=== PATIENT | female | born 1965 | race Hispanic/Latino ===

== ENCOUNTER 2019-10-07 15:32 | Outpatient (CLI) | payer BC, SELFPAY ==
--- NOTE | ~2019-10-07 | MM_ITS ---
EXAMINATION: MM screening wander BI w shonna HISTORY: Screening mammogram TECHNIQUE: Craniocaudal and mediolateral oblique 3-D tomosynthesis images were obtained and synthetic 2-D images were generated. CAD analysis was submitted and interpreted. COMPARISON: 09/02/2018, 08/22/2017 and 08/01/2016 bilateral digital screening mammogram examinations BREAST PARENCHYMAL COMPOSITION: There are scattered areas of fibroglandular density. FINDINGS: There is no evidence of suspicious mass, calcification, or architectural distortion to sugg est malignancy in either breast. There has been no suspicious interval change. IMPRESSION: 1. No mammographic evidence of malignancy. 2. Recommend routine screening mammography in one year. BI-RADS Category 1: Negative Reviewed, dictated and finalized at location A. 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
== END 2019-10-07 15:33 | disposition home or self-care (01) ==
LOC: ANHIMG 15:36
PROVIDERS: PCP Family Medicine; Visit Provider Family Medicine
DX: Z12.31 Encounter for screening mammogram for malignant neoplasm of breast (principal)
CPT/HCPCS: 77063; 77067

== ENCOUNTER → 2021-04-24 15:04 | Outpatient (CLI) | payer BC, SELFPAY ==
--- NOTE | ~2021-04-24 | XR_ITS ---
EXAMINATION: XR chest 2V 04/24/2021 15:23 INDICATION: Chest pain PROCEDURE: 2 view chest COMPARISON: 05/04/2014 FINDINGS: The lungs are clear. The cardiomediastinal silhouette is within normal limits. There are no pleural effusions. There is no pneumothorax suspected. IMPRESSION: 1: NO ACUTE CARDIOPULMONARY DISEASE. Reviewed, dictated and finalized at location A.
== END ==
PROVIDERS: PCP Family Medicine; Visit Provider Family Medicine
DX: M85.80 Other specified disorders of bone density and structure, unspecified site (principal); R07.9 Chest pain, unspecified
CPT/HCPCS: 71046

== ENCOUNTER → 2021-06-19 11:49 | Outpatient (CLI) | payer BC, SELFPAY ==
--- NOTE | ~2021-06-19 | DEXA_ITS ---
Bone Density Report Name: Janice Marin Age: 55 Sex: Female Ethnicity: White Date of : 1965 Indication: postmenopausal; screening for osteoporosis; Referring Provider: KB, AUTUMN Hdez Study: Bone densitometry was performed. Exam Date: June 19, 2021 Accession number: [id number] Bone Density: Region BMD T-score Z-score Classification AP Spine (L1-L4) 0.883 -1.5 -0.4 Osteopenia Femoral Neck (Left) 0.849 0.0 1.1 Normal Total Hip (Left) 0.915 -0.2 0.5 Normal Femoral Neck (Right) 0.886 0.3 1.4 Normal Total Hip (Right) 0.935 -0.1 0.6 Normal Total Hip Mean 0.925 -0.2 0.6 Normal World Health Organization criteria for BMD impression classify patients as: Normal (T-score at or above -1.0), Osteopenia (T-score between -1.0 and -2.5), or Osteoporosis (T-score at or below -2.5). 10-year Fracture Risk(1): Major Osteoporotic Fracture 5.3% Hip Fracture 0.1% Reported Risk Factors: [place] (), Neck BMD=0.849, BMI=25.5 (1) FRAX(R) Version 3.08. Fracture probability calculated for an untreated patient. Fracture probability may be lower if the patient has received treatment. Clinical Information Provided by Patient: Has used the following medications: Calcium, MTV Patient maximum height was 64.0 Menopause Age: 49 No regular weight bearing exercise Does not regularly consume dairy products Onset of menses at age 12 Number of children 4 Impression: The patient has low bone mass, based on the Total Spine T-score. The patient has an estimated ten-year risk of hip fracture of 0.1% and an estimated ten-year risk of major fracture of 5.3%, based on the WHO FRAX algorithm. Discussion: BONE DENSITY IS LOW AT ONE OR MORE SKELETAL SITES. This patient's lowest T-score is low at one or more skeletal sites. It meets the World Health Organization's (WHO) criteria for ?low bone mass? (T-score between -1.0 and -2.5). The patient's 10-year risk of fracture as calculated by FRAX is less than the threshold where pharmacological therapy is recommended by the National Osteoporosis Foundation (NOF). However, all treatment decisions require clinical judgment and consideration of individual patient factors, including patient preferences, comorbidities, previous drug use, risk factors not captured in the FRAX model (e.g., frailty, falls, vitamin D deficiency, increased bone turnover, interval significant decline in bone density) and possible under or overestimation of fracture risk by FRAX. The patient should follow a healthful lifestyle (good nutrition with adequate calcium and vitamin D, and appropriate weight-bearing exercise). Follow-Up: Consider repeating this study in 2 to 3 years to reassess this patient's status, or sooner if there is some new clinical indication. Reported by: [facility] on 06/19/2021 12
== END ==
PROVIDERS: PCP Family Medicine; Visit Provider Family Medicine
DX: R07.9 Chest pain, unspecified (principal); M85.88 Other specified disorders of bone density and structure, other site
CPT/HCPCS: 77080

== ENCOUNTER 2023-01-07 15:47 | Outpatient (CLI) | payer BC, SELFPAY ==
--- NOTE | ~2023-01-07 | MM_ITS ---
EXAMINATION: MM screening wander BI w shonna HISTORY: Screening TECHNIQUE: Craniocaudal and mediolateral oblique 3-D tomosynthesis images were obtained and synthetic 2-D images were generated. CAD analysis was submitted and interpreted. COMPARISON: Comparison to multiple prior studies sequentially, with oldest reviewed study dated 07/04. BREAST PARENCHYMAL COMPOSITION: Breast composed of scattered areas of fibroglandular density FINDINGS: There is no evidence of suspicious mass, calcification, or architectural distortion to sugg est malignancy in either breast. There has been no suspicious interval change. IMPRESSION: 1. No mammographic evidence of malignancy. 2. Recommend routine screening mammography in one year. BI-RADS Category 1: Negative Reviewed, dictated and finalized at location A.
== END 2023-01-07 15:48 | disposition home or self-care (01) ==
LOC: ANHIMG 15:50
PROVIDERS: PCP Family Medicine; Visit Provider Family Medicine
DX: Z12.31 Encounter for screening mammogram for malignant neoplasm of breast (principal)
CPT/HCPCS: 77063; 77067

== ENCOUNTER → 2023-09-25 14:10 | Outpatient (CLI) | payer BC, SELFPAY ==
--- NOTE | ~2023-09-25 | DEXA_ITS ---
Bone Density Report Name: JENS LOUIS Age: 57 Sex: Female Ethnicity: White Date of : 1965 Indication: osteopenia; height loss; postmenopausal Referring Provider: KB, AUTUMN Hdez Study: Bone densitometry was performed. Exam Date: September 25, 2023 Accession number: [id number] Bone Density: Region BMD T-score Z-score Classification AP Spine (L1-L4) 0.852 -1.8 -0.5 Osteopenia Femoral Neck (Left) 0.779 -0.6 0.5 Normal Total Hip (Left) 0.874 -0.6 0.3 Normal Femoral Neck (Right) 0.750 -0.9 0.3 Normal Total Hip (Right) 0.850 -0.8 0.1 Normal Total Hip Mean 0.862 -0.7 0.2 Normal World Health Organization criteria for BMD impression classify patients as: Normal (T-score at or above -1.0), Osteopenia (T-score between -1.0 and -2.5), or Osteoporosis (T-score at or below -2.5). 10-year Fracture Risk(1): Major Osteoporotic Fracture 6.5% Hip Fracture 0.3% Reported Risk Factors: [place] (), Neck BMD=0.750, BMI=25.4 (1) FRAX(R) Version 3.08. Fracture probability calculated for an untreated patient. Fracture probability may be lower if the patient has received treatment. Previous Exams: Region Exam Age BMD T-score BMD Change BMD Change Date g/cm2 vs Baseline vs Previous AP Spine(L1-L4) 09/25/2023 57 0.852 -1.8 -0.031* -0.031* 06/19/2021 55 0.883 -1.5 Total Hip(Left) 09/25/2023 57 0.874 -0.6 -0.042* -0.042* 06/19/2021 55 0.915 -0.2 Total Hip(Right) 09/25/2023 57 0.850 -0.8 -0.085* -0.085* 06/19/2021 55 0.935 -0.1 *Denotes significance at 95% confidence level, LSC for AP Spine = 0.022 g/cm2, LSC for Total Hip = 0.027 g/cm2 Clinical Information Provided by Patient: Has used the following medications: Vitamin D, MTV Patient maximum height was 64.0 Menopause Age: 49 No regular weight bearing exercise Does not regularly consume dairy products Drinks caffeinated beverages Onset of menses at age 12 Number of children 4 Impression: The patient has low bone mass, based on the Total Spine T-score. The patient has an estimated ten-year risk of hip fracture of 0.3% and an estimated ten-year risk of major fracture of 6.5%, based on the WHO FRAX algorithm. The BMD for the AP Spine(L1-L4) decreased, changing by -0.031 since the last DXA exam. The BMD for the Total Hip(Left) decreased, changing by -0.042 since the last DXA exam. The BMD for the Total Hip(Right) decreased, guevara
== END ==
PROVIDERS: PCP Family Medicine; Visit Provider Family Medicine
DX: M85.88 Other specified disorders of bone density and structure, other site (principal)
CPT/HCPCS: 77080

== ENCOUNTER 2024-03-07 14:50 | Outpatient (CLI) | payer BC, SELFPAY ==
--- NOTE | ~2024-03-07 | US_ITS ---
EXAMINATION: US thyroid DATE: 03/07/2024 15:05 INDICATION: Nontoxic single thyroid nodule. TECHNIQUE: Multiple ultrasound images of the thyroid were obtained. COMPARISON: CT neck 04/07/2019 FINDINGS: The right thyroid lobe measures 3.4 x 1.2 x 1.3 cm. The left thyroid lobe measures 4.1 x 1.1 x 1.5 c m. In the right thyroid lobe, there is a 6 mm macrocalcification. In the left thyroid lobe, there is a 4 mm macrocalcification. IMPRESSION: 1. Chronic macrocalcifications in the thyroid, likely not clinically significant. No follow-up is nee ded. Reviewed, dictated and finalized at location A. IMPRESSION: 1. Chronic macrocalcifications in the thyroid, likely not clinically significan t. No follow-up is needed.
== END 2024-03-07 14:51 ==
LOC: MICIMG 14:51
PROVIDERS: PCP Nurse Practitioner Family; Visit Provider Nurse Practitioner Family
DX: E04.1 Nontoxic single thyroid nodule (principal)
CPT/HCPCS: 76536

== ENCOUNTER 2024-04-11 18:52 | Emergency (ER) | payer BC, SELFPAY ==
--- NOTE | ~2024-04-11 | XR_ITS ---
EXAMINATION: XR chest 2V Exam Date/Time: 04/11/2024 19:20 CDT HISTORY: chest pain Comparison: None. RESULT: Lines, tubes, and devices: None. Lungs and pleura: Clear. Cardiomediastinal silhouette: Unremarkable. Other: No acute osseous or upper abdominal finding. IMPRESSION: No acute cardiopulmonary process. Reviewed, dictated and finalized at location K.
--- NOTE | 2024-04-11 19:06 | ECG_ITS ---
Test Date: 2024-04-11 19:18:20 Measurements Intervals [place] Rate: 63 P: 55 OK: 135 QRS: 37 QRSD: 85 T: 61 QT: 398 QTc: 410 Interpretive Statements SINUS RHYTHM LEFT ATRIAL ENLARGEMENT EARLY PRECORDIAL R/S TRANSITION LEFT VENTRICULAR HYPERTROPHY MINIMAL Q WAVES- HIGH LATERAL LEADS BORDERLINE ECG No previous ECG available for comparison Electronically Signed On 04-11-2024 20:14:17 CDT by Tobias Aranda D.O.
[2024-04-11 19:11] VITALS: BP 193/76; PULSE 80; RESP 15; TEMP 36.6; O2SAT 100
[2024-04-11 19:31] LABS: Basophils Percent Auto 0.3 % (0.2-1.2); Eosinophils Absolute Auto 0.1 K/mm3 (0-0.3); Hematocrit 43.7 % (37.0-47.0); Hemoglobin 13.9 g/dL (12.0-15.0); Immature Granulocyte Absolute 0.02 K/mm3 (0.00-0.031); Immature Granulocyte Percent A 0.2 % (0-0.5); Lymphocytes Absolute Auto 3.73 K/mm3 (0.9-3.2); Lymphocytes Percent Auto 40.2 % (18.3-44.2); Mean Corpuscular HGB Conc 31.8 g/dl (32-36); Mean Corpuscular Hemoglobin 29.1 pg (26-34); Mean Corpuscular Volume 91.4 fl (80-100); Mean Platelet Volume 11.1 fl (7.4-10.4); Monocytes Absolute Auto 0.7 K/mm3 (0.1-0.6); Monocytes Percent Auto 7.2 % (2.6-8.5); Neutrophils Absolute Auto 4.7 K/mm3 (1.3-6.7); Neutrophils Percent Auto 51.1 % (45.5-73.1); Platelet Count Result 268 k/mm3 (150-375); Red Blood Count 4.78 M/mm3 (4.2-5.4); Red Cell Distribution Width 12.1 % (11.5-14.5); White Blood Count 9.3 K/mm3 (4.5-10.0)
[2024-04-11 19:43] LABS: INR 0.9; Partial Thromboplastin Time 27.5 Seconds (22.3-36.8); Prothrombin Time 12.7 Seconds (11.1-14.7)
[2024-04-11 19:44] LABS: Alanine Aminotransferase 25 U/L (6-35); Albumin Level 4.7 g/dL (3.5-5.1); Alkaline Phosphatase 76 U/L (38-126); Anion Gap 8 mmol/L (4-12); Aspartate Amino Transferase 34 U/L (14-36); Bilirubin,Total 0.3 mg/dL (0.2-1.3); Blood Urea Nitrogen 17 mg/dL (7-17); Calcium 9.4 mg/dL (8.4-10.2); Carbon Dioxide 34 mmol/L (22-30); Chloride 98 mmol/L (98-107); Estimated CRCL calculation 51 ml/min; Estimated Glomerular Filt Rate > 60; Glucose 123 mg/dL (65-110); Lipase 125 U/L (23-300); Potassium 4.1 mmol/L (3.4-5.0); Sodium 140 mmol/L (137-145)
[2024-04-11 19:55] LABS: Troponin I < 0.012 ng/mL (0.000-0.034)
--- NOTE | 2024-04-11 23:39 | ECG_ITS ---
Test Date: 2024-04-11 23:43:20 Measurements Intervals [place] Rate: 62 P: 60 [place]: 144 QRS: 43 QRSD: 81 T: 57 QT: 396 QTc: 403 Interpretive Statements SINUS RHYTHM LEFT ATRIAL ENLARGEMENT LEFT VENTRICULAR HYPERTROPHY MINIMAL Q WAVES- HIGH LATERAL LEADS BASELINE ARTIFACT- I, II, AVR, V1 BORDERLINE ECG Compared to ECG 04/11/2024 19:18:20 NO SIGNIFICANT CHANGE Electronically Signed On 04-12-2024 06:26:00 CDT by Tobias Aranda D.O.
[2024-04-11 23:48] VITALS: PULSE 62
[2024-04-11 23:49] VITALS: BP 109/69; PULSE 62; RESP 16; TEMP 36.4; O2SAT 100
[2024-04-11 23:50] VITALS: O2SAT 100
[2024-04-12 00:21] LABS: Troponin I < 0.012 ng/mL (0.000-0.034)
--- NOTE | 2024-04-12 00:36 | ED.CHESTPAIN ---
HPI - Chest Pain General Chief Complaint: Chest Pain Stated Complaint: chest pain Time Seen by Provider: 04/11/24 23:56 History of Present Illness HPI narrative: 58-year-old female with a past medical history for prediabetes and well-controlled hypertension who presents to the emergency department chief complaint of intermittent chest discomfort. She states for last day or so she has been having vague chest discomfort in the anterior portion of her chest. Not associated with the movement, exertion or rest. She states that is sporadic and lasts for a brief period of time. Has not happened before. States sometimes is worse with a deep inhalation. No pneumonia symptoms such as a productive cough, fevers, difficulty in breathing. No chills, rigors, abdominal pain, back pain. Was previously normal state of health. No recent procedures or long travel. No history of DVT or PE. Related Data Allergies Allergy/AdvReac Type Severity Reaction Status Date / Time No Known Allergies Allergy Verified 04/11/24 18:52 Review of Systems Review of Systems: As reviewed above Exam Narrative: GENERAL: [Well-appearing, well-nourished, and in no acute distress.] HEAD: [Normocephalic, atraumatic.] EYES: [PERRLA and EOMI.] ENT: Nares clear, no rhinorrhea or epistaxis. Mucous membranes moist. NECK: Supple. CHEST: [Clear to auscultation. No respiratory distress.] HEART: [Regular rate and rhythm]. No murmur heard. [Normal peripheral pulses.] ABDOMEN: [Soft, nondistended], [nontender], [No rigidity or guarding] EXTREMITIES: Normal range of motion. [No edema.] SKIN: Warm, dry, no rash. NEURO: [No focal deficits]. Alert and oriented [x3.] PSYCH: [Normal mood and affect.] Course Vital Signs Vital signs: Vital Signs Temperature 36.6 C 04/11/24 19:11 Pulse Rate 80 04/11/24 19:11 Respiratory Rate 15 04/11/24 19:11 Blood Pressure 193/76 H 04/11/24 19:11 Pulse Oximetry 100 04/11/24 19:11 Oxygen Delivery Room Air 04/11/24 19:11 Temperature 36.4 C 04/11/24 23:49 Pulse Rate 62 04/11/24 23:49 Respiratory Rate 16 04/11/24 23:49 Blood Pressure 109/69 04/11/24 23:49 Pulse Oximetry 100 04/11/24 23:50 Oxygen Delivery Room Air 04/11/24 23:50 MDM - Chest Pain MDM Narrative Medical decision making narrative: This is a 58-year-old female presenting for vague chest discomfort intermittent in nature without any symptoms such as nausea, vomiting, diaphoresis, shortness of breath, abdominal pain, back pain. No recent viral syndromes or any other recent illnesses or infection. No DVT or PE history. She does meet very low criteria for wells score and does not require advanced workup for a PE. She has normal reassuring vital signs and is afebrile, normal blood pressure, pulse and oxygen saturation. Cardiac workup was ordered with serial troponins, chest x-ray, electrolytes and kidney and hepatic function panel. Patient presently has no symptoms on my evaluation of her and does not need any kind of analgesia. No leukocytosis or anemia. Normal PT and PTT. Normal electrolytes, no renal dysfunction, normal hepatic function, normal glucose. Negative troponin x2 negative lipase. No cardiopulmonary process in the chest on the chest x-ray as interpreted by radiology. Patient's serial EKG showed no ST segment elevations, depressions or any inversions. No concerning features for ischemic changes. Patient was re-evaluated still had no symptoms. Given her clean workup she is stable for discharge home. She was given return precautions and discharge instructions at this time. Lab Data 04/11/24 19:23 04/11/24 19:23 Labs: Lab Results 04/11/24 04/11/24 Range/Units 19:23 23:46 WBC 9.3 (4.5-10.0) K/mm3 RBC 4.78 (4.2-5.4) M/mm3 Hgb 13.9 (12.0-15.0) g/dL Hct 43.7 (37.0-47.0) % MCV 91.4 (80-100) fl MCH 29.1 (26-34) pg MCHC 31.8 L (32-36) g/dl RDW 12.1
== END 2024-04-12 00:51 | disposition home or self-care (01) ==
PROVIDERS: Emergency Medicine; Emergency Provider Student in an Organized Health Care Education/Training Program
DX: R07.89 Other chest pain (principal)
CPT/HCPCS: 36415; 71046; 80053; 83690; 84484; 85025; 85610; 85730; 93005; 99284

== ENCOUNTER 2024-05-06 14:57 | Outpatient (CLI) | payer BC, SELFPAY ==
--- NOTE | ~2024-05-06 | MM_ITS ---
EXAMINATION: MM screening wander BI w shonna HISTORY: Screening TECHNIQUE: Craniocaudal and mediolateral oblique 3-D tomosynthesis images were obtained and synthetic 2-D images were generated. CAD analysis was submitted and interpreted. COMPARISON: Comparison to multiple prior studies sequentially, with oldest reviewed study dated 07/05. BREAST PARENCHYMAL COMPOSITION: Not dense: There are scattered areas of fibroglandular density. FINDINGS: There is no evidence of suspicious mass, calcification, or architectural distortion to sugg est malignancy in either breast. There has been no suspicious interval change. IMPRESSION: 1. No mammographic evidence of malignancy. 2. Recommend routine screening mammography in one year. BI-RADS Category 1: Negative Reviewed, dictated and finalized at location B.
== END 2024-05-06 14:58 | disposition home or self-care (01) ==
LOC: ANHIMG 14:59
PROVIDERS: PCP Nurse Practitioner Family; Visit Provider Nurse Practitioner Obstetrics & Gynecology
DX: Z12.31 Encounter for screening mammogram for malignant neoplasm of breast (principal)
CPT/HCPCS: 77063; 77067

== ENCOUNTER 2024-08-25 16:04 | Outpatient (CLI) | payer BC, SELFPAY ==
--- NOTE | ~2024-08-25 | CT_ITS ---
EXAMINATION: CT sinus wo con DATE: 08/25/2024 16:17 INDICATION: Chronic sinusitis TECHNIQUE: Computed tomography (CT) of the paranasal sinuses was performed without intravenous contra st. Coronal and sagittal reconstructions were obtained. The dose-length product was 266.74 mGy-cm. COMPARISON: None FINDINGS: Mucoperiosteal thickening is identified within the right sphenoid sinus. Remaining paranasal sinuses are otherwise unremarkable. The nasal septum is minimally deviated towards the patient's left, without a prominent spur. The mastoid air cells are well aerated. IMPRESSION: Mucoperiosteal thickening within the right sphenoid sinus. Reviewed, dictated and finalized at location A. [employer]
== END 2024-08-25 16:05 | disposition home or self-care (01) ==
LOC: MICIMG 16:04
PROVIDERS: PCP Nurse Practitioner Family; Visit Provider Nurse Practitioner Family
DX: J32.9 Chronic sinusitis, unspecified (principal)
CPT/HCPCS: 70486

== ENCOUNTER 2024-10-08 12:03 | Emergency (ER) | payer BC, SELFPAY ==
[2024-10-08 12:15] VITALS: BP 176/81; PULSE 77; RESP 16; TEMP 36.8; O2SAT 99
--- NOTE | 2024-10-08 12:24 | ED_ITS ---
HPI - Skin/Abscess/Foreign Bdy General Chief complaint: Skin/Abscess/Foreign Body Stated complaint: rash,itching Time Seen by Provider: 10/08/24 12:24 Source: patient, RN notes reviewed and old records reviewed Mode of arrival: ambulatory Limitations: no limitations History of Present Illness HPI narrative: 58-year-old female presents to the [facility] with a rash to the posterior neck that has spread since Thursday. No treatment prior to arrival. Describes his but being very itchy. Denies any new creams ointments lotions detergents. No new foods. Denies any lip or tongue swelling. No trouble breathing. Related Data Home Medications ?Medication ?Instructions ?Recorded ?Confirmed ?Last Taken ?Type cholecalciferol (vitamin D3) 1,250 1,250 mcg PO WEEKLY 12/16/23 10/08/24 Unknown History mcg (50,000 unit) capsule Allergies Allergy/AdvReac Type Severity Reaction Status Date / Time No Known Allergies Allergy Verified 10/08/24 12:06 Review of Systems Review of Systems: All systems reviewed & are unremarkable except as noted in HPI and below Constitutional: Constitutional: Reports no additional constitutional complaints ENT: Reports system reviewed and no additional complaints, except as documented Cardiovascular: Cardiovascular: Reports no additional cardiovascular complaints, Denies chest pain and Denies dyspnea Respiratory: Respiratory: Reports no additional respiratory complaints, Denies chest congestion, Denies cough and Denies dyspnea Musculoskeletal: Musculoskeletal: Reports no additional musculoskeletal complaints Integumentary/Breasts: Skin/Breast: Reports as per HPI [facility] Past Medical History Medical History Pre-diabetes Family History Family History Mother Hypertension Father Family history of type 2 diabetes mellitus Family history of heart disease in male family member before age 55 Alcoholism Diabetes mellitus Hypertension Heart disease Sibling Thyroid disease Social History Social History Smoking status: Never smoker Alcohol intake: never Comments At the time of my signature, I reviewed and agree with the nursing past medical, surgical, social, and family history. There is no relevant family history pertinent to the patient complaint. Exam Const: General: cooperative, healthy appearing, comfortable, no acute distress, well developed, alert and well nourished Nutritional Appearance: well nourished Orientation/consciousness: patient oriented x3 Limitations: no limitations HENMT: Head: normal to inspection Mouth: Yes Normal oral and palatal mucosa present, Yes lip normal and Yes tongue normal Eyes: General: appearance normal, both eyes and all related structures Alignment and Position: alignment normal Neck: Neck: normal visual inspection, full ROM, no lymphadenopathy and no meningeal signs Chest: Chest palpation & inspection: normal inspection of the chest Resp: Effort & Inspection: normal respiratory effort and able to speak in complete sentences Auscultation: clear to auscultation bilaterally, no crackles, no rales, no rhonchi and no wheezes Cardio: Rate: regular rate Skin: General skin exam: normal color and no rashes or lesions noted Rashes: rashes noted (Rash posterior neck, left arm and foot.) Neuro: General: patient oriented x3, gait normal, moves all extremities and no meningeal signs Cognition (Neuro): normal cognition Speech: normal speech Gait exam (Neuro): Normal gait present Extrem: General: normal to inspection, full ROM, capillary refill normal and normal gait Psych: Appearance: grossly normal and well kempt Mental Status: mental status grossly normal Speech and movement: Normal speech and movement present and Clear speech present Affect: normal affect Attitude: cooperative Course Course Level of Care: Express Care Visit Vital Signs Vital signs: Vital Signs Temperature 98.2 F 10/08/24 12:15 Pulse Rate 77 10/08/24 12:15 Respiratory Rate 16 10/08/24 12:15 Blood Pressure 176/81 H 10/08/24 12:15 Pulse Oximetry 99 10/08/24 12:15 Oxygen Delivery Room Air 10/08/24 12:15 Temperature 98.2 F 10/08/24 12:15 Pulse Rate 77 10/08/24 12:15 Respiratory Rate 16 10/08/24 12:15 Blood Pressure 176/81 H 10/08/24 12:15 Pulse Oximetry 99 10/08/24 12:15 Oxygen Delivery Room Air 10/08/24 12:15 Reviewed MDM - Skin/Abscess/Foreign Bdy MDM Narrative Medical decision making narrative: Patient sitting comfortably in exam room. Nontoxic, vitals stable except for blood pressure is elevated.. Patient in no acute distress Patient with hives to the posterior neck. Patient is appropriate for outpatient treatment with close follow-up Discharge instructions reviewed with patient, as well as provided in writing per nursing staff. The instructions also include specific and strict return/GO TO THE ER as well as f/u information. All questions have been answered, and the patient deny any further questions with discharge and discharge plan. Some parts of this dictation were generated by voice recognition software and may contain typographical and/or grammatical inaccuracies. Differential Diagnosis Differential diagnosis: Likely abscess of skin or subcutaneous tissue, urticaria, cellulitis, eczema and contact dermatitis Critical Care Time Critical Care Time Critical Care Time: No Discharge Plan Discharge Clinical Impression: Hives Patient Disposition: Home, Self-Care Condition: Stable Instructions: Antibiotic Form, Urticaria (ED) Additional Instructions: Today your blood pressure is 176/81. It is highly recommended that you follow- up with your primary care provider within the next 2 weeks to have your blood pressure rechecked. Untreated or undertreated blood pressure can lead to more serious health issues. The most important part of your care is follow up with Primary care provider. Take Benadryl 25-50 mg every 8 hours for itching Take Zyrtec every day Take Pepcid 20mg daily for 7 days Take the steroids starting today, next dose in the morning Avoid hot showers, Take cool showers. Hot showers will make rashes worse Apply cool compresses every 2-3 hours for 15 minutes Go to the ER for new or worsening symptoms such as shortness of breath. Patient Language: Macedonian Prescriptions: New prednisone 20 mg tablet See Rx Instructions .Route .COMPLEX Qty: 15 0RF Rx Instructions: Take 40 mg daily for 5 days, 20 mg daily for 5 days No Action cholecalciferol (vitamin D3) 1,250 mcg (50,000 unit) capsule 1,250 mcg PO WEEKLY Follow-up/Referrals: Yves,Marilyn Rodrigues NP [Primary Care Provider] - 2 Weeks ([facility] follow-up) Stand Alone Forms: Work/School Release IP Time of Disposition: 12:33
== END 2024-10-08 12:40 | disposition home or self-care (01) ==
PROVIDERS: Emergency Provider Nurse Practitioner; PCP Nurse Practitioner Family
DX: L50.9 Urticaria, unspecified (principal)
CPT/HCPCS: 99213; G0463

== ENCOUNTER 2025-06-06 14:10 | Outpatient (CLI) | payer BC, SELFPAY ==
--- NOTE | ~2025-06-06 | MM_ITS ---
EXAMINATION: MM screening wander BI w shonna HISTORY: Screening TECHNIQUE: Craniocaudal and mediolateral oblique 3-D tomosynthesis images were obtained and synthetic 2-D images were generated. CAD analysis was submitted and interpreted. COMPARISON: Comparison to multiple prior studies sequentially, with oldest reviewed study dated , 08/22/2017 BREAST PARENCHYMAL COMPOSITION: There are scattered areas of fibroglandular density. FINDINGS: There is no evidence of suspicious mass, calcification, or architectural distortion to suggest malignancy in either breast. IMPRESSION: 1. No mammographic evidence of malignancy. 2. Recommend routine screening mammography in one year. BI-RADS Category 1: Negative Reviewed, dictated and finalized at location B. [employer]
== END 2025-06-06 14:11 | disposition home or self-care (01) ==
LOC: ANHFOHIMG 14:12
PROVIDERS: Visit Provider Nurse Practitioner Obstetrics & Gynecology
DX: Z12.31 Encounter for screening mammogram for malignant neoplasm of breast (principal)
CPT/HCPCS: 77063; 77067